=== PATIENT | female | born 1940 | race Caucasian/White ===

== ENCOUNTER 2017-01-22 08:19 | Inpatient (IN) | payer MEDICARE ==
[~2017-01-22] VITALS: Ht 157.5 cm; Wt 72.0 kg
[~2017-01-22 08:19] MED LIST: BACITRACIN 50,000 UNIT ONE; BUPIVACAINE/PF-EPI 0.5% 1:200K ONE; CALC1TAB84 PO; CHOL400C11 PO; DILT120C64 PO; FENTANYL PF 250 MCG/5ML ONE; LEVO25TA4 PO; MAGN400C PO; METO25TA35 PO; MIDAZOLAM 1 MG/ML, 2ML ONE; MULT-208 PO; THROMBIN 5,000 UNIT VIAL TP ONE; TRIA1TAB3 PO; VIT1TABL32 PO
[2017-01-22] MEDS ORDERED: GLUC-149 PO (09:01)
[2017-01-22] MEDS ORDERED: LACTATED RINGERS 1,000 ML IV SCH (09:04)
[2017-01-22] MEDS ORDERED: LIDOCAINE 1%, 2ML ONE (09:10)
[2017-01-22] MEDS ORDERED: LIDOCAINE 1%, 2ML SQ PRN (09:30)
[2017-01-22] MEDS ORDERED: ACETAMINOPHEN 325 MG TABLET PO PRN (10:30)
[2017-01-22] MEDS ORDERED: METOCLOPRAMIDE 5 MG/ML, 2ML IV PRN (10:30)
[2017-01-22] MEDS ORDERED: PROMETHAZINE 25 MG/ML, 1ML IV PRN (10:30)
[2017-01-22] MEDS ORDERED: hydrALAzine 20 MG/ML, 1ML IV PRN (10:30)
[2017-01-22] MEDS ORDERED: MEPERIDINE/PF 25MG/0.5ML IVPush PRN (10:30)
[2017-01-22] MEDS ORDERED: LABETALOL 5MG/ML, 20ML IV PRN (10:30)
[2017-01-22] MEDS ORDERED: OXYcodone 5 MG/5 ML ORAL.SOL UDC PO PRN (10:30)
[2017-01-22] MEDS ORDERED: ONDANSETRON 2MG/ML, 2ML IVPush PRN (10:30)
[2017-01-22] MEDS: FENTANYL PF 100 MCG/2ML IV PRN ×3 (12:10→12:41)
[2017-01-22] MEDS ORDERED: FENTANYL PF 100 MCG/2ML ONE (12:11)
[2017-01-22] MEDS ORDERED: OXYcodone 5 MG/5 ML ORAL.SOL UDC ONE (12:11)
[2017-01-22] MEDS ORDERED: ACETAMINOPHEN 650 MG/20.3 ML UDC ONE (12:11)
[2017-01-22] MEDS ORDERED: HYDROmorphone 1 MG/ML, 1ML ONE (12:50)
[2017-01-22] MEDS: HYDROmorphone 1 MG/ML, 1ML IV PRN ×2 (12:52→13:06)
[2017-01-22] MEDS ORDERED: HYDROmorphone/PF 4 MG/ML, 1ML IM PRN ×2 (15:00→19:20)
[2017-01-22] MEDS ORDERED: DIPHENHYDRAMINE 50 MG/ML, 1ML IVPush PRN (15:00)
[2017-01-22] MEDS ORDERED: SENNA/DOCUSATE TABLET PO PRN (15:00)
[2017-01-22] MEDS ORDERED: ZOLPIDEM 5MG TABLET PO PRN (15:00)
[2017-01-22] MEDS ORDERED: BISACODYL 10 MG SUPP PR PRN (15:00)
[2017-01-22] MEDS ORDERED: PHARMACY MAY ADJ FOR RENAL FX MC PRN (15:00)
[2017-01-22] MEDS ORDERED: MAGNESIUM HYDROXIDE 8%, 30ML UDC PO PRN (15:00)
[2017-01-22] MEDS ORDERED: HYDROcodone/APAP 5/325 TABLET PO PRN (15:00)
[2017-01-22] MEDS ORDERED: LABETALOL 5MG/ML, 20ML IVPush PRN (15:00)
[2017-01-22] MEDS ORDERED: PROMETHAZINE 25 MG/ML, 1ML IM PRN (15:00)
[2017-01-22] MEDS ORDERED: DIPHENHYDRAMINE 50 MG CAPSULE PO PRN (15:00)
[2017-01-22] MEDS ORDERED: DIPHENHYDRAMINE 50 MG/ML, 1ML IM PRN (15:00)
[2017-01-22] MEDS ORDERED: GLYCOPYRROLATE 0.2MG/1ML ONE (16:32)
[2017-01-22] MEDS ORDERED: NEOSTIGMINE 1 MG/ML, 10ML ONE (16:32)
[2017-01-22] MEDS ORDERED: DEXAMETHASONE 4 MG/ML, 1ML ONE (16:32)
[2017-01-22] MEDS ORDERED: CEFAZOLIN 1,000 MG ONE (16:32)
[2017-01-22] MEDS ORDERED: ROCURONIUM 10 MG/ML ONE (16:32)
[2017-01-22] MEDS ORDERED: ONDANSETRON 2MG/ML, 2ML ONE (16:32)
[2017-01-22] MEDS ORDERED: PROPOFOL 10 MG/ML, 20ML ONE (16:32)
[2017-01-22] MEDS ORDERED: OXYcodone/APAP 5/325MG TABLET ONE (16:58)
[2017-01-22] MEDS: OXYcodone/APAP 5/325MG TABLET PO PRN (17:00)
[2017-01-22] MEDS ORDERED: HYDROmorphone 2 MG/ML, 1ML ONE (18:19)
[2017-01-22] MEDS: CEFAZOLIN PMX 1GM/50ML 50 ML IVPB SCH (19:50)
[2017-01-22] MEDS ORDERED: NS + 20MEQ KCL 1,000 ML IV SCH (20:00)
[2017-01-22 20:10] VITALS: BP 108/58
[2017-01-22] MEDS: ONDANSETRON 2MG/ML, 2ML IVPush PRN (20:49)
[2017-01-22] MEDS ORDERED: CALCIUM/VITAMIN D3 250-125 TABLET PO SCH (21:00)
[2017-01-22] MEDS ORDERED: DILTIAZEM 120 MG CAP.ER.24H PO SCH (21:00)
[2017-01-22] MEDS: CALCIUM/VITAMIN D3 250-125 TABLET PO SCH (22:32)
[2017-01-22] MEDS ORDERED: METHOCARBAMOL 750 MG in DEXTROSE 5% 100 ML IV PRN (23:00)
[2017-01-23] MEDS ORDERED: CEFAZOLIN PMX 1GM/50ML 50 ML IVPB SCH
[2017-01-23] MEDS ORDERED: HYDROmorphone 1 MG/ML, 1ML ONE (02:27)
[2017-01-23 02:45] VITALS: BP 98/51
[2017-01-23] MEDS: CEFAZOLIN PMX 1GM/50ML 50 ML IVPB SCH (03:25)
[2017-01-23] MEDS: ONDANSETRON 2MG/ML, 2ML IVPush PRN (03:25)
[2017-01-23] MEDS ORDERED: LEVOTHYROXINE 75 MCG TABLET PO SCH (06:00)
[2017-01-23] MEDS ORDERED: METOPROLOL TARTRATE 25 MG TABLET PO SCH (06:00)
[2017-01-23] MEDS ORDERED: LEVOTHYROXINE 25 MCG TABLET PO SCH (06:00)
[2017-01-23 06:52] VITALS: BP 102/47
[2017-01-23] MEDS: CALCIUM/VITAMIN D3 250-125 TABLET PO SCH (07:37)
[2017-01-23] MEDS ORDERED: MULTIVITAMINS/MINERALS TABLET PO SCH (09:00)
[2017-01-23] MEDS ORDERED: MAGNESIUM OXIDE 400 MG TABLET PO SCH (09:00)
[2017-01-23] MEDS ORDERED: TRIAMTERENE-HCTZ 37.5/25 MG TABLET PO SCH (09:00)
[2017-01-23] MEDS ORDERED: CHOLECALCIFEROL 400 UNITS TABLET PO SCH (09:00)
[2017-01-23] MEDS ORDERED: TIZA4TAB9 PO (09:06)
[2017-01-23] MEDS ORDERED: OXYC-302 PO (09:06)
[2017-01-23] MEDS: OXYcodone/APAP 5/325MG TABLET PO PRN (09:15)
[2017-01-23 10:55] VITALS: BP 112/54
== END 2017-01-23 12:10 | disposition home or self-care (01) | DRG 518 ==
LOC: OUT 08:19 → ORIP 14:34 → 4NOR 18:50 → DCLOUNGE 01-23 11:49
PROVIDERS: ADMIT Neurological Surgery; ATTEND Neurological Surgery
PROC: 0SH00BZ Insertion of Interspinous Process Spinal Stabilization Device into Lumbar Vertebral Joint, Open Approach (ICD-10-PCS; 2017-01-22)
PROC: 01NB0ZZ Release Lumbar Nerve, Open Approach (ICD-10-PCS; principal; 2017-01-22 12:30)
DX: M48.06 Spinal stenosis, lumbar region (principal); M47.9 Spondylosis, unspecified; G83.9 Paralytic syndrome, unspecified
CPT/HCPCS: 72100; J0690; J1100; J1170; J2250; J2405; J2704; J2710; J3010; J3480; J3490; J7120

== ENCOUNTER → 2020-06-27 | Outpatient (CLI) | payer MEDICARE ==
[~2020-06-27] MED LIST changes: -BACITRACIN 50,000 UNIT ONE; -BUPIVACAINE/PF-EPI 0.5% 1:200K ONE; +CALC-694 PO; -CALC1TAB84 PO; -FENTANYL PF 250 MCG/5ML ONE; +GLUC-149 PO; -MIDAZOLAM 1 MG/ML, 2ML ONE; +OXYC-302 PO; -THROMBIN 5,000 UNIT VIAL TP ONE; +TIZA4TAB9 PO
== END | disposition home or self-care (01) ==
LOC: CARD 09:45
PROVIDERS: ATTEND Family Medicine
DX: I10 Essential (primary) hypertension (principal); R07.1 Chest pain on breathing
CPT/HCPCS: 93017; 93350